=== PATIENT | male | born 1945 | race Caucasian/White ===

== ENCOUNTER 2017-09-09 18:32 | Emergency (ER) | payer MEDICARE, BC ==
--- NOTE | 2017-09-09 19:06 | EDM.PDOC ---
ED HPI GENERAL MEDICAL PROBLEM - General Chief Complaint: General Stated Complaint: FELL HURT RIBS Time Seen by Provider: 09/09/17 19:06 Source of Information: Reports: Patient History Limitations: Reports: No Limitations - History of Present Illness INITIAL COMMENTS - FREE TEXT/NARRATIVE: Domenic presents to the emergency room today with complaints of left sided chest pain and left forearm pain after he fell while carrying metal folding chairs. He denies LOC or other injury. Onset: Today, Sudden Improves with: Reports: Rest Worsens with: Reports: Movement Treatments MAILING MANAGER: Reports: Other (see below) (EMS started a saline lock and administered Dilaudid 2mg IV. ) Anterior Chest Pain Score (Numeric/FACES): 2 - Related Data Allergies Allergy/AdvReac Type Severity Reaction Status Date / Time Sulfa (Sulfonamide Allergy Rash Verified 09/09/17 18:41 Antibiotics) Home Meds: Home Meds Ferrous Sulfate 325 mg PO BID 09/09/17 [History] Losartan Potassium 100 mg PO DAILY 09/09/17 [History] Pravastatin Sodium [Pravastatin (Pravachol)] 20 mg PO BEDTIME 09/09/17 [History] Sertraline [Zoloft] 50 mg PO BEDTIME 09/09/17 [History] Vardenafil HCl [Levitra] 20 mg PO ASDIRECTED 09/09/17 [History] glyBURIDE,Micronized [Glynase] 6 mg PO BID 09/09/17 [History] metFORMIN [Glucophage] 1,000 mg PO WITHDINNER 09/09/17 [History] rOPINIRole [Requip XL] 2 mg PO BEDTIME 09/09/17 [History] Past Medical History HEENT History: Reports: Glaucoma Cardiovascular History: Reports: High Cholesterol, Hypertension Musculoskeletal History: Reports: Fracture, Other (See Below) Other Musculoskeletal History: foot fx bilateral thumbs spine cysts Neurological History: Reports: Neuropathy, Diabetic, Other (See Below) Other Neuro History: restless legs Endocrine/Metabolic History: Reports: Diabetes, Type II Hematologic History: Reports: Anemia Oncologic (Cancer) History: Reports: Squamous Cell Carcinoma - Infectious Disease History Infectious Disease History: Reports: Chicken Pox - Past Surgical History HEENT Surgical History: Reports: Adenoidectomy, Cataract Surgery, Tonsillectomy Dermatological Surgical History: Reports: Skin Biopsy, Other (See Below) Social & Family History - Tobacco Use Smoking Status *Q: Current Every Day Smoker Years of Tobacco use: 50 Packs/Tins Daily: 1 Used Tobacco, but Quit: No Second Hand Smoke Exposure: Yes - Caffeine Use Caffeine Use: Reports: Coffee, Soda, Tea - Alcohol Use Days Per Week of Alcohol Use: 0 - Recreational Drug Use Recreational Drug Use: Yes Drug Use in Last 12 Months: Yes Recreational Drug Type: Reports: Marijuana/Hashish Recreational Drug Use Frequency: Socially ED ROS GENERAL - Review of Systems Review Of Systems: See Below Constitutional: Denies: Fever, Chills, Malaise, Weakness HEENT: Reports: No Symptoms Respiratory: Reports: Other (Pain to left chest/sternal area. ). Denies: Shortness of Breath, Wheezing, Cough, Sputum, Hemoptysis Cardiovascular: Denies: Dyspnea on Exertion, Edema, Lightheadedness, Palpitations, PND, Syncope Endocrine: Reports: No Symptoms GI/Abdominal: Denies: Abdominal Pain, Nausea, Vomiting : Reports: No Symptoms Musculoskeletal: Reports: Arm Pain, Other (Left forearm pain, ecchymosis and edema. ) Skin: Reports: Bruising, Other (edema to left forearm. ) Neurological: Denies: Confusion, Dizziness, Headache, Numbness, Paresthesia, Syncope, Tingling, Difficulty Walking, Weakness, Gait Disturbance Psychiatric: Reports: No Symptoms Hematologic/Lymphatic: Reports: No Symptoms Immunologic: Reports: No Symptoms ED EXAM, GENERAL - Physical Exam Exam: See Below Free Text/Narrative:: Domenic is an alert and oriented 72 year old male presenting to the ER tonight with complaints of left forearm pain and left sternal/rib pain after fall onto metal folding chairs he was carrying. Exam Limited By: No Limitations General Appearance: Alert, Mild Distress Eye Exam: Bilateral Eye: EOMI, Normal Inspection, PERRL Ears: Normal External Exam, Normal Canal, Hearing Grossly Normal, Normal TMs Ear Exam: Bilateral Ear: Auricle Normal, Canal Normal, TM normal Nose: Normal Inspection, Normal Mucosa, No Blood Throat/Mouth: Normal Inspection, Normal Lips, Normal Teeth, Normal Gums, Normal Oropharynx, Normal Voice, No Airway Compromise Head: Atraumatic, Normocephalic Neck: Normal Inspection, Supple, Non-Tender, Full Range of Motion Respiratory/Chest: No Respiratory Distress, Lungs Clear, Normal Breath Sounds, No Accessory Muscle Use, Other (Pain with palpation to left sternum and anterior left ribs. No ecchymosis or edema note. ). No: Rhonchi, Wheezing, Pleural Rub, Accessory Muscle Use, Retractions, Splinting Cardiovascular: Normal Peripheral Pulses, Regular Rate, Rhythm, No Edema, No Gallop, No Murmur, No Rub Peripheral Pulses: 2+: Radial (L), Radial (R), Dorsalis Pedis (L), Dorsalis Pedis (R) GI/Abdominal: Normal Bowel Sounds, Soft, Non-Tender, No Organomegaly, No Distention, Other (Large, round obese) Back Exam: Normal Inspection, Full Range of Motion. No: CVA Tenderness (R), CVA Tenderness (L), Paraspinal Tenderness, Vertebral Tenderness Extremities: Normal Range of Motion, Normal Capillary Refill, Other (edema to left forearm with ecchymosis. ROM intact. ) Neurological: Alert, Oriented, CN II-XII Intact, Normal Cognition, Normal Gait, No Motor/Sensory Deficits Psychiatric: Normal Affect, Normal Mood Skin Exam: Warm, Dry, Intact, Ecchymosis, Other (edema to left forearm, no sign of compartment syndrome. ). No: Erythema Lymphatic: No Adenopathy Course - Vital Signs Last Recorded V/S: Last Vital Signs Temp 37.2 C 09/09/17 18:39 Pulse 90 09/09/17 19:36 Resp 14 09/09/17 19:36 BP 145/52 H 09/09/17 19:36 Pulse Ox 94 L 09/09/17 19:36 - Orders/Labs/Meds Orders: Active Orders 24 hr Category Date Time Status Chest 2V [CR] Stat Exams 09/09/17 19:32 Taken Forearm 2V Lt [CR] Stat Exams 09/09/17 19:37 Taken Ribs Bi 3V wo Chest [CR] Stat Exams 09/09/17 19:03 Taken - Radiology Interpretation Free Text/Narrative:: X-rays wet read by Dr. Valenzuela and myself. No acute findings noted. Departure - Departure Time of Disposition: 20:25 Disposition: Home, Self-Care 01 Condition: Fair Clinical Impression: Chest wall contusion, Contusion of left forearm - Discharge Information Instructions: Rib Contusion Referrals: PCP,None [Primary Care Provider] - Forms: ED Department Discharge Additional Instructions: You have been treated in the emergency room for a fall with sternal/left rib contusion and left forearm contusion. Rest, ice, elevate and compress your left forearm. Rest, ice and use IS for breathing every hour while awake to help yourself deep breath and prevent developing pneumonia. You most likely have damaged the cartilage between your sternum and left ribs. Take naproxen, acetaminophen as directed for pain. You can also take hydrocodone 5mg PO, one tablet three times a day for pain that is not controlled with naproxen and acetaminophen. Return to your primary care provider in 3 to 5 days for a recheck. You are provided a CD of your radiographic images. Return for worsening, shortness of breath, unusual chest pain or any other concerns. - My Orders Last 24 Hours: My Active Orders 09/09/17 19:03 Ribs Bi 3V wo Chest [CR] Stat 09/09/17 19:32 Chest 2V [CR] Stat 09/09/17 19:37 Forearm 2V Lt [CR] Stat - Assessment/Plan Last 24 Hours: My Active Orders 09/09/17 19:03 Ribs Bi 3V wo Chest [CR] Stat 09/09/17 19:32 Chest 2V [CR] Stat 09/09/17 19:37 Forearm 2V Lt [CR] Stat Assessment:: Chest wall contusion, contusion of left forearm Plan: Patient has been treated in the emergency room for a fall with sternal/left rib contusion and left forearm contusion. Rest, ice, elevate and compress left forearm. Rest, ice and use IS for breathing every hour while awake to help himself deep breath and prevent developing pneumonia. He most likely have damaged the cartilage between your sternum and left ribs. Take naproxen, acetaminophen as directed for pain. He can also take hydrocodone 5mg PO, one tablet three times a day for pain that is not controlled with naproxen and acetaminophen. Return to his primary care provider in 3 to 5 days for a recheck. He was provided a CD of your radiographic images. Return for worsening, shortness of breath, unusual chest pain or any other concerns. 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
--- NOTE | 2017-09-11 10:15 | CR ---
Left forearm The radius and ulna demonstrate normal alignment. There is no evidence for fracture. Impression: 1. No acute findings.
--- NOTE | 2017-09-11 10:18 | CR ---
Ribs Bi 3V wo Chest, Chest 2V FINDINGS: The heart and vascular structures are normal in appearance. No infiltrates or effusions are demonstrated. The ribs demonstrate normal alignment. There are no findings of fracture. IMPRESSION: Negative exam.
== END 2017-09-09 20:47 | disposition home or self-care (01) ==
LOC: EDBD 18:32 → JP.ED 18:32
DX: S20.212A Contusion of left front wall of thorax, initial encounter (principal); S50.12XA Contusion of left forearm, initial encounter; I10 Essential (primary) hypertension; E78.00 Pure hypercholesterolemia, unspecified; E11.9 Type 2 diabetes mellitus without complications; F17.210 Nicotine dependence, cigarettes, uncomplicated; Z88.2 Allergy status to sulfonamides; Z79.899 Other long term (current) drug therapy; W19.XXXA Unspecified fall, initial encounter
CPT/HCPCS: 71046; 71046-26; 71110; 71110-26; 73090-26-LT; 73090-LT; 99283; 99285